=== PATIENT | female | born 1960 | race Caucasian/White ===

== ENCOUNTER 2016-06-18 13:51 | Emergency (ER) | payer BC ==
[~2016-06-18] VITALS: Ht 162.6 cm; Wt 88.9 kg
[~2016-06-18 13:51] MED LIST: LORAZEPAM INJ 2 MG/ML VIAL ONE
--- NOTE | 2016-06-18 13:55 | NUR ---
PT WITNESSED SIZURE [employer]. NO INJURY. LAST SEIZURE 2002. PT AWAKE BUT CONFUSED REORIENTED PT. PT HAS LAC #20 PATENT. PLACED PT ON MONITOR. VSS.
[2016-06-18] MEDS ORDERED: LORAZEPAM INJ 2 MG/ML VIAL IVP ONE (14:00)
--- NOTE | 2016-06-18 14:04 | NUR ---
PT TAKEN TO CT SCAN
--- NOTE | 2016-06-18 14:16 | NUR ---
PT BACK TO ROOM FROM CT AWAKE ALERT
--- NOTE | 2016-06-18 14:17 | NUR ---
LAB AT BEDSIDE COLLECTED BLOOD SAMPLE SENT TO LAB
[2016-06-18 14:26] LABS: BASOPHILS # (AUTO) 0.2 /CMM (0.0-0.2); BASOPHILS % (AUTO) 2.6 % (0.0-2.0); EOSINOPHILS % (AUTO) 0.3 % (0.0-6.0); HEMATOCRIT 40 % (33-45); HEMOGLOBIN 13.2 g/dL (11.5-14.8); LYMPHOCYTES # (AUTO) 0.5 /CMM (0.8-4.8); MEAN CORPUSCULAR HEMOGLOBIN 32 PG (26.0-33.0); MEAN CORPUSCULAR HGB CONC 33 g/dl (31.0-36.0); MEAN CORPUSCULAR VOLUME 95 fL (82-100); MONOCYTES # (AUTO) 0.2 /CMM (0.1-1.30); MONOCYTES % (AUTO) 2.9 % (2.0-12.0); NEUTROPHILS # (AUTO) 7.6 /CMM (1.8-8.9); NEUTROPHILS % (AUTO) 88.2 % (43.0-81.0); PLATELET COUNT (AUTO) 311 /CMM (150-450); RDW COEFFICIENT OF VARIATION 12.7 (11.5-15.0); RED BLOOD CELL COUNT(AUTO) 4.19 MIL/uL (4.0-5.2); WHITE BLOOD COUNT (AUTO) 8.5 K/uL (4.3-11.0)
[2016-06-18 14:34] LABS: CALCIUM, SERUM 8.9 mg/dL (8.5-10.1); CARBON DIOXIDE 28 mmol/L (21-32); CHLORIDE 99 mmol/L (98-107); CREATININE 1.1 mg/dL (0.6-1.3); GFR 51 mL/min (>60); GLUCOSE 186 mg/dL (74-106); POTASSIUM 3.5 mmol/L (3.5-5.1); SODIUM SERUM 136 mmol/L (136-145); UREA NITROGEN, BLOOD 13 mg/dL (7-18)
[2016-06-18 14:40] LABS: ALANINE AMINOTRANSFERASE 22 U/L (12-78); ALBUMIN 3.8 g/dL (3.4-5.0); ALCOHOL, BLOOD < 3 mg/dL (0-0); ALKALINE PHOSPHATASE 69 U/L (46-116); ASPARTATE AMINOTRANSFERASE 24 U/L (15-37); BILIRUBIN,DIRECT 0.1 mg/dL (0.0-0.2); BILIRUBIN,TOTAL 0.6 mg/dL (0.2-1.0); TOTAL PROTEIN, SERUM 7.6 g/dL (6.4-8.2)
[2016-06-18] MEDS ORDERED: IV SET PRIMARY PUMP SET 1 EA INFUS.SET MC ONE (14:41)
[2016-06-18] MEDS ORDERED: LEVETIRACETAM (500MG) 500 MG in IV NS 0.9% 100 ML IV ONE (15:00)
[2016-06-18 15:08] VITALS: BP 120/82
[2016-06-18] MEDS ORDERED: ACETAMINOPHEN ES 500 MG TABLET ONE (15:25)
[2016-06-18] MEDS ORDERED: ACETAMINOPHEN 325 MG TABLET PO STA (15:26)
--- NOTE | 2016-06-18 15:29 | NUR ---
IV removed. Catheter intact and site benign. Pressure and 4x4 applied to site. No bleeding noted. Patient discharged to home in stable condition. Written and verbal after care instructions given. Patient verbalizes understanding of instruction. Prescription given to patient.
== END 2016-06-18 15:30 | disposition home or self-care (01) ==
LOC: ER 13:54
DX: R56.9 Unspecified convulsions (principal)
CPT/HCPCS: 36415; 70450; 80048; 80076; 85025; 96365; 96375; 99285; A4606; G0480; J1953; J2060; J7030; Z7610